=== PATIENT | female | born 1985 | race Caucasian/White ===

== ENCOUNTER 2023-02-20 18:10 | Outpatient (REF) | payer OTHER, SELFPAY ==
--- NOTE | 2023-02-20 16:20 | PAPFT_PTH ---
PATIENT: Tara Márquez LOC: [facility] U#:[id number] AGE/SX: 37/F ROOM: RE02/20/[address]: Jessica De La O MD : 1985 BED: DIS: 02/20/2023 SPEC #: [id number] RECD: 02/20/23 18:13 STATUS: CHRISTO REQ #: [id number] KALYANI: 02/20/23 16:[address]: Jessica De La O [facility]PT[facility] Cytology RECD BY: Lizeth Nielsen ENTERED: 02/20/23 18:13 SP TYPE: PAPFT OTHR DR: Sarahi Bryan APRN Tissues: 1 - CX/ENDOCX FOR PAP SMEARS Procedures: PAP THIN PREP/[facility] Screening HPV DNA PROBE Comments: [id number]
== END 2023-02-20 18:11 | disposition home or self-care (01) ==
LOC: LBN 18:10
PROVIDERS: PCP Nurse Practitioner; Visit Provider Obstetrics & Gynecology
DX: Z01.419 Encounter for gynecological examination (general) (routine) without abnormal findings (principal)
CPT/HCPCS: 88142; 87624